=== PATIENT | male | born 1985 | race American Indian/Alaskan Native ===

== ENCOUNTER 2017-02-04 18:12 | Emergency (ER) | payer MEDICAID ==
[2017-02-04 18:31] VITALS: TEMP 97.9; O2SAT 98
[2017-02-04 18:52] LABS: RBC URINE < 1 /hpf (0-3); URINE BACTERIA RARE (<OCC); URINE BILIRUBIN NEGATIVE (NEGATIVE); URINE BLOOD NEGATIVE (NEGATIVE); URINE COLOR Yellow (YELLOW); URINE GLUCOSE (UA) NORMAL (Normal); URINE KETONE NEGATIVE (NEGATIVE); URINE LEUKOCYTE ESTERASE NEG Leu/uL (Negative); URINE PROTEIN NEGATIVE (NEGATIVE); WBC URINE 1 /hpf (0-5)
--- NOTE | 2017-02-04 19:05 | C.PDOC ---
History Of Present Illness 31 y/o male presents to ED with c/o lower back pain since this morning. Patient describes pain as throbbing and pulling sensation. Otherwise, patient denies headache, neck pain, abdominal pain, nausea, vomiting, dysuria, hematuria, urinary or bowel incontinence, new extremity weakness, new extremity numbness, or associated symptoms. Time Seen by Provider: 02/04/17 18:36 Chief Complaint (Nursing): Back Pain History Per: Patient History/Exam Limitations: no limitations Onset/Duration Of Symptoms: Hrs Current Symptoms Are (Timing): Still Present Quality Of Discomfort: Other (throbbing, pulling) Previous Symptoms: None Associated Symptoms: denies: New Weakness, New Numbness Recent travel outside of the [place]: No Past Medical History Reviewed: Historical Data, Nursing Documentation, Vital Signs Vital Signs: Last Vital Signs Temp 97.9 F 02/04/17 19:33 Pulse 61 02/04/17 19:33 Resp 18 02/04/17 19:33 BP 117/75 02/04/17 19:33 Pulse Ox 98 02/04/17 19:33 - Medical History PMH: No Chronic Diseases Family History: States: Unknown Family Hx - Social History Hx Tobacco Use: No Hx Alcohol Use: No Hx Substance Use: No - Immunization History Hx Tetanus Toxoid Vaccination: No Hx Influenza Vaccination: No Hx Pneumococcal Vaccination: No Review Of Systems Except As Marked, All Systems Reviewed And Found Negative. Constitutional: Negative for: Fever, Chills Gastrointestinal: Negative for: Vomiting Musculoskeletal: Positive for: Back Pain. Negative for: Neck Pain Skin: Negative for: Rash Neurological: Negative for: Weakness, Numbness Physical Exam - Physical Exam Appears: Non-toxic, No Acute Distress Skin: Normal Color, Warm, Dry Head: Atraumatic, Normacephalic Neck: No Midline Cervical Tenderness, No Paracervical Tenderness, Supple Chest: Symmetrical Cardiovascular: Rhythm Regular Respiratory: Normal Breath Sounds, No Rales, No Rhonchi, No Wheezing Gastrointestinal/Abdominal: Soft, No Tenderness, No Guarding, No Rebound Back: No Vertebral Tenderness, Paraspinal Tenderness (lumbar) Extremity: Normal ROM, Capillary Refill (< 2 sec.) Neurological/Psych: Oriented x3, Normal Speech, Normal Cognition, Normal Motor, Normal Sensation ED Course And Treatment O2 Sat by Pulse Oximetry: 98 (RA) Pulse Ox Interpretation: Normal Medical Decision Making Medical Decision Making: Plan: * Valium * Motrin * Urinalysis * Reassess Prior Visits: Notes and results from previous visits were reviewed. Progress Notes: UA was negative. Upon reevaluation patient reports pain improve and feels comfortable going home. Patient advised to rest apply heat and take NSAID for pain Disposition Counseled Patient/Family Regarding: Diagnosis, Need For Followup, Rx Given - Disposition Disposition: HOME/ ROUTINE Disposition Time: 19:19 Condition: STABLE Additional Instructions: Follow up with your primary medical doctor or clinic in 2-5 days for further evaluation. Take medications as prescribed. Return to the emergency department at any time if symptoms persist or worsen. Prescriptions: Cyclobenzaprine [Cyclobenzaprine HCl] 10 mg PO TID #21 tab Ibuprofen [Motrin] 600 mg PO Q8 #30 tab Instructions: Acute Low Back Pain (GEN) - POA Present On Arrival: None - Clinical Impression Clinical Impression: Low back pain, Muscle spasm - PA / EXPERIENCE DESIGN DIRECTOR / Resident Statement MD/DO has reviewed & agrees with the documentation as recorded. - Scribe Statement The provider has reviewed the documentation as recorded by the Yola Chavarria Provider Scribe Attestation: All medical record entries made by the Yola were at my direction and personally dictated by me. I have reviewed the chart and agree that the record accurately reflects my personal performance of the history, physical exam, medical decision making, and the department course for this patient. I have also personally directed, reviewed, and agree with the discharge instructions and disposition.
[2017-02-04 19:33] VITALS: BP 117/75; PULSE 61; RESP 18
== END 2017-02-04 19:40 | disposition home or self-care (01) ==
LOC: C.ER 18:12
DX: M54.5 Low back pain (principal); M62.838 Other muscle spasm

== ENCOUNTER 2017-02-24 18:56 | Emergency (ER) | payer MEDICAID ==
[2017-02-24 19:41] VITALS: TEMP 97.9
--- NOTE | 2017-02-24 20:40 | C.PDOC ---
History Of Present Illness 31 year old patient presents to the ED complaining of an itchy and diffuse rash for the past week. Patient states he started using a new Dove soap when the symptoms began. He used Tricalm cream with no relief. He denies taking any oral medications for his symptoms. Patient also denies fever, throat swelling, throat pain, shortness of breath, nausea, or vomiting. Time Seen by Provider: 02/24/17 20:00 Chief Complaint (Nursing): Allergic Reaction History Per: Patient History/Exam Limitations: no limitations Onset/Duration Of Symptoms: Other (1 week ) Current Symptoms Are (Timing): Still Present Sick Contacts (Context): None Severity: Mild Pain Scale Rating Of: 3 Recent travel outside of the [place]: No Past Medical History Reviewed: Historical Data, Nursing Documentation, Vital Signs Vital Signs: Last Vital Signs Temp 97.9 F 02/24/17 21:06 Pulse 57 L 02/24/17 21:06 Resp 20 02/24/17 21:06 BP 129/73 02/24/17 21:06 Pulse Ox 99 02/24/17 21:33 Family History: States: Unknown Family Hx - Social History Hx Tobacco Use: No Hx Alcohol Use: No Hx Substance Use: No - Immunization History Hx Tetanus Toxoid Vaccination: No Hx Influenza Vaccination: No Hx Pneumococcal Vaccination: No Review Of Systems Except As Marked, All Systems Reviewed And Found Negative. Constitutional: Negative for: Fever ENT: Negative for: Throat Pain, Throat Swelling Respiratory: Negative for: Shortness of Breath Gastrointestinal: Negative for: Nausea, Vomiting Skin: Positive for: Rash (diffuse, itchy) Physical Exam - Physical Exam Appears: Non-toxic, No Acute Distress Skin: Warm, Dry, Rash (diffuse, erythematous fine macular rash), No Ecchymosis Eye(s): bilateral: Normal Inspection Nose: Normal Oral Mucosa: Moist Lips: Normal Appearing, No Swelling Throat: Normal, No Erythema, No Exudate Cardiovascular: Rhythm Regular Respiratory: Normal Breath Sounds, No Wheezing Neurological/Psych: Oriented x3, Normal Speech, Normal Cognition Gait: Steady ED Course And Treatment O2 Sat by Pulse Oximetry: 99 (RA) Pulse Ox Interpretation: Normal Progress Note: Plan: -Benadryl, Prednisone. --Reassess and disposition. Upon reassessment, patient is resting comfortably, tolerating PO, has no shortness of breath, has no intra-oral swelling, no stridor. Patient notes that pruritus has improved. Patient was advised to avoid potential allergens, and to follow up with physician in 1-2 days. Return if symptoms worsen. Disposition Counseled Patient/Family Regarding: Diagnosis, Need For Followup, Rx Given - Disposition Referrals: Soraida Knapp MD [Staff Provider] - Disposition: HOME/ ROUTINE Disposition Time: 20:35 Condition: STABLE Additional Instructions: Please follow up with PMD Take meds as directed Follow up with PMD Return to ER if worse Prescriptions: Famotidine [Pepcid] 20 mg PO DAILY #7 tab Cetirizine HCl [Zyrtec] 10 mg PO DAILY #20 capsule predniSONE [Prednisone] 40 mg PO DAILY #10 tab Instructions: Contact Dermatitis (ED) - Clinical Impression Clinical Impression: Allergic contact dermatitis - PA / CUB REPORTER / Resident Statement MD/DO has reviewed & agrees with the documentation as recorded. - Scribe Statement The provider has reviewed the documentation as recorded by the Scribe Shana Martell All medical record entries made by the Scribe were at my direction and personally dictated by me. I have reviewed the chart and agree that the record accurately reflects my personal performance of the history, physical exam, medical decision making, and the department course for this patient. I have also personally directed, reviewed, and agree with the discharge instructions and disposition.
[2017-02-24 21:07] VITALS: BP 129/73; PULSE 57; RESP 20
[2017-02-24 21:29] VITALS: O2SAT 99
== END 2017-02-24 21:07 | disposition home or self-care (01) ==
LOC: C.ER 18:56
DX: L23.9 Allergic contact dermatitis, unspecified cause (principal)

== ENCOUNTER 2018-09-27 13:19 | Emergency (ER) | payer MEDICAID ==
[2018-09-27 13:42] VITALS: BP 144/77; PULSE 97; RESP 20; TEMP 100.1; O2SAT 98
--- NOTE | 2018-09-27 14:06 | C.PDOC ---
History Of Present Illness 33 year old male presents to the ED complaining of runny nose, headache, and sore throat for 3 days. Denies any nausea, vomiting, diarrhea, abdominal pain, cough, shortness of breath, ear pain, or any other symptoms. Denies sick contacts or recent travels. Time Seen by Provider: 09/27/18 13:45 Chief Complaint (Nursing): Cough, Cold, Congestion History Per: Patient History/Exam Limitations: no limitations Onset/Duration Of Symptoms: Days Current Symptoms Are (Timing): Still Present Location Of Pain: Throat, Headache Sick Contacts (Context): None Associated Symptoms: Fever, Sore Throat. denies: Cough, Vomiting, Diarrhea Ear Symptoms: Bilateral: None Past Medical History Reviewed: Historical Data, Nursing Documentation, Vital Signs Vital Signs: Last Vital Signs Temp 100.1 F H 09/27/18 13:37 Pulse 97 H 09/27/18 13:37 Resp 20 09/27/18 13:37 BP 144/77 09/27/18 13:37 Pulse Ox 98 09/27/18 13:37 - Medical History PMH: No Chronic Diseases Other Surgeries: corneal implant Family History: States: No Known Family Hx - Social History Hx Tobacco Use: No Hx Alcohol Use: Yes Hx Substance Use: No - Immunization History Hx Tetanus Toxoid Vaccination: No Hx Influenza Vaccination: No Hx Pneumococcal Vaccination: No Review Of Systems Except As Marked, All Systems Reviewed And Found Negative. Constitutional: Positive for: Fever. Negative for: Chills ENT: Positive for: Throat Pain. Negative for: Ear Pain Respiratory: Negative for: Cough Gastrointestinal: Negative for: Nausea, Vomiting, Abdominal Pain, Diarrhea Physical Exam - Physical Exam Appears: Non-toxic, No Acute Distress Skin: Warm, Dry, No Rash Head: Atraumatic, Normacephalic Eye(s): bilateral: Normal Inspection, PERRL, EOMI Ear(s): Bilateral: Normal Nose: Normal Oral Mucosa: Moist Tongue: Normal Appearing, No Swelling Lips: Normal Appearing Teeth: Normal Dentition Gingiva: Normal Appearing Throat: Normal, No Erythema, No Exudate Neck: Normal ROM, Supple Chest: Symmetrical Cardiovascular: Rhythm Regular, No Friction Rub, No Murmur Respiratory: No Rales, No Rhonchi, No Wheezing Gastrointestinal/Abdominal: Soft, No Tenderness Extremity: Normal ROM, No Swelling Extremity: Bilateral: Atraumatic, Normal Color And Temperature, Normal ROM Neurological/Psych: Oriented x3, Normal Speech Gait: Steady ED Course And Treatment O2 Sat by Pulse Oximetry: 98 (RA) Pulse Ox Interpretation: Normal Medical Decision Making Medical Decision Making: Plan - Rapid Strep Group A - Influenza A/B 1435 Microbiology called. Influenza A positive. Disposition - Disposition Referrals: Morro Martell MD [Staff Provider] - Disposition: HOME/ ROUTINE Disposition Time: 14:38 Condition: STABLE Additional Instructions: Follow up with the medical doctor within 1-2 days. Return if worsened. Prescriptions: Benzonatate [Tessalon Perles] 200 mg PO TID PRN #21 sgl PRN Reason: Cough Ibuprofen [Motrin] 600 mg PO TID #21 tab Oseltamivir [Tamiflu] 75 mg PO BID #9 cap predniSONE [Prednisone] 10 mg PO BID #10 tab Instructions: Flu, Adult (DC) Forms: [employer] (Bel[place]ian), Work Excuse - Clinical Impression Clinical Impression: Influenza A - PA / [employer] FOUNDER AND CEO / Resident Statement MD/DO has reviewed & agrees with the documentation as recorded. - Scribe Statement The provider has reviewed the documentation as recorded by the Scribe Syl Hill All medical record entries made by the Evelinibpelon were at my direction and personally dictated by me. I have reviewed the chart and agree that the record accurately reflects my personal performance of the history, physical exam, medical decision making, and the department course for this patient. I have also personally directed, reviewed, and agree with the discharge instructions and disposition.
== END 2018-09-27 14:49 | disposition home or self-care (01) ==
LOC: C.ER 13:19
DX: J10.1 Influenza due to other identified influenza virus with other respiratory manifestations (principal)